=== PATIENT | male | born 1980 | race American Indian/Alaskan Native ===

== ENCOUNTER 2018-01-18 08:54 | Inpatient (IN) | payer BC ==
--- NOTE | 2018-01-18 10:01 | ED PDOC ---
HPI: Neurologic - General Chief Complaint (Provider): face weakness Source: patient Exam Limitations: no limitations - History of Present Illness Timing/Duration: other (12 h) Associated Symptoms: other (diminished sensation left arm) Additional Complaint(s): 37 yo ,m, afroamerican, PMhx/o HTN, cervical disk herniation, recentrly coming from [facility] yesterday after vacation, presents to ED referred from Urgent care with c/o facial droop noticed yesterday afternoon 6 pm. Patient reports he noticed left eye discomfort, rubbed his eye, looked in the mirrow and noticed facial droop upper and lower left side of face. Patient reports like a small pimple in his left ear, but not ear pain, ear discharge, tinnitus. He reports diminished sensation left forearm noticed today in the morning. He denies extremities weakness, numbness, facial numbness, headache, dizziness, confusion , slurred speech, fever, cough, SOB, n,v,d,abd pain, insect bite, tick bite, dysuria, rash. Pt was evaluated in Ed this morning and referred to Ed. Reports has been taking Atovaquone ( Malarone) for the last 7days <Suhas Vivar - Last Filed: 01/18/18 15:32> - History of Present Illness Timing/Duration: 24 hours <Chika Rinaldi - Last Filed: 01/19/18 08:03> - General Time Seen by Provider: 01/18/18 09:13 Chief Complaint (Nursing): Weakness/Neurological Deficit - History of Present Illness Allergies/Adverse Reactions: Allergies No Known Allergies Allergy (Verified 01/18/18 09:07) Home Medications: Ambulatory Orders Atovaquone/Proguanil [Malarone 250 mg-100 mg] 1 tab PO DAILY 01/18/18 NIHSS Stroke Scale - Date/Time Evaluation Performed Date Performed: 01/18/18 - How Severe is the Stroke Level of Consciousness: 0=Alert LOC to Questions: 0=Both comments correct LOC to commands: 0=Obeys both correctly Best Gaze: 0=Normal Visual: 0=No visual loss Facial: 3=Complete unilateral paralysis Motor Arm - Left: 0=No drift Motor Arm - Right: 0=No drift Motor Leg - Left: 0=No drift Motor Leg - Right: 0=No drift Limb Ataxia: 0=Absent Sensory: 1=Mild to moderate loss (medial side right forearm) Dysarthia: 0=Normal articulation Extinction & Inattention (Neglect): 0=Normal, no object <Suhas Vivar - Last Filed: 01/18/18 15:32> - Date/Time Evaluation Performed Time Performed: 09:20 When Was NIHSS Performed: Baseline - How Severe is the Stroke Level of Consciousness: 0=Alert LOC to Questions: 0=Both comments correct LOC to commands: 0=Obeys both correctly Best Gaze: 0=Normal Visual: 0=No visual loss Facial: 3=Complete unilateral paralysis Motor Arm - Left: 0=No drift Motor Arm - Right: 0=No drift Motor Leg - Left: 0=No drift Motor Leg - Right: 0=No drift Limb Ataxia: 0=Absent Sensory: 1=Mild to moderate loss Best Language: 0=No aphasia Dysarthia: 0=Normal articulation Extinction & Inattention (Neglect): 0=Normal, no object Score: 4 <Chika Rinaldi - Last Filed: 01/19/18 08:03> rTPA Inclusion/Exclusion - Inclusion Criteria for Altepase Patient is 18 years or Older: Yes The Clinical Diagnosis of Ischemic Stroke That is Causing a Potentially Disabling Neurological Deficit: No Time of Onset is Well Established to be Less Than 270 Minute Before Treatment Would Begin: No Risk/Benefit Discussed With Patient/Family Member Present: Yes - Exclusion Criteria for Altepase Uncontrolled Hypertension at Time of Treatment (Systolic BP above 185 or Diastolic BP above 110 mmHg): No Active Internal Bleeding: No Known Bleeding Diathesis Including but Not Limited to: Platelets Below 100,000/ mm,PTT Above 40 sec After Heparin Use, Current Use of Oral Anitcoagulant With INR Greater Than 1.7 or PT Greater Than 15 secs: No Evidence of an Intracranial Hemorrhage: No Suspicion of Subarachnoid Hemorrhage on Pretreatment Evaluation Even if CT Head Negative For Hemorrhage: No <Suhas Vivar - Last Filed: 01/18/18 15:32> - Refusal of Treatment Patient Refused Treatment: No - Inclusion Criteria for Altepase Patient is 18 years or Older: Yes The Clinical Diagnosis of Ischemic Stroke That is Causing a Potentially Disabling Neurological Deficit: No Time of Onset is Well Established to be Less Than 270 Minute Before Treatment Would Begin: No Risk/Benefit Discussed With Patient/Family Member Present: No <Chika Rinaldi Last Filed: 01/19/18 08:03> Supervising Attending Note - Supervising Attending Note The Documented history was done by the: Physician Living Supervisor, Attending Physician The documented physical exam was done by the: Physician Living Supervisor, Attending Physician The documented procedures were done by the: Physician Living Supervisor, Attending Physician - Attestation: I have personally seen and examined this patient.: Yes I have fully participated in the care of the patient.: Yes I have reviewed all pertinent clinical information, including history, physical exam and plan: Yes <NimcoFacundoyonatan A - Last Filed: 01/19/18 08:03> Past Medical History Vital Signs: Last Vital Signs Temp 97 F L 01/18/18 09:09 Pulse 79 01/18/18 09:09 Resp 18 01/18/18 09:09 BP 141/92 H 01/18/18 09:09 Pulse Ox 99 01/18/18 09:09 - Medical History PMH: HTN - Surgical History Surgical History: No Surg Hx - Family History Family History: States: Diabetes (Parents. Father CHF) - Social History Alcohol: Social Drugs: Denies <Suhas Vivar - Last Filed: 01/18/18 15:32> Reviewed: Historical Data, Nursing Documentation, Vital Signs Vital Signs: Last Vital Signs Temp 98.4 F 01/18/18 14:40 Pulse 77 01/18/18 14:40 Resp 16 01/18/18 14:40 BP 132/77 01/18/18 14:40 Pulse Ox 99 01/18/18 14:40 - Medical History PMH: HTN - Surgical History Surgical History: No Surg Hx - Family History Family History: States: Diabetes <NimcoFacundoyonatan Mike - Last Filed: 01/19/18 08:03> - Home Medications Home Medications: Ambulatory Orders Medication Instructions Recorded Atovaquone/Proguanil [Malarone 250 1 tab PO DAILY 01/18/18 mg-100 mg] - Allergies Allergies/Adverse Reactions: Allergies Allergy/AdvReac Type Severity Reaction Status Date / Time No Known Allergies Allergy Verified 01/18/18 09:07 Review of Systems Neurological: Positive for: Weakness (fracial), Other (diminished sensation left forearm) <Suhas Vivar - Last Filed: 01/18/18 15:32> ROS Statement: Except As Marked, All Systems Reviewed And Found Negative Constitutional: Negative for: Fever <NimcoFacundoyonatan Mckeon - Last Filed: 01/19/18 08:03> Physical Exam - Reviewed Vital Signs Reviewed: Yes - Physical Exam Appears: Positive for: Well, No Acute Distress Head Exam: Positive for: ATRAUMATIC, NORMOCEPHALIC Skin: Positive for: Normal Color Eye Exam: Positive for: EOMI, PERRL, Other (Incomplete closure of the left eyelid). Negative for: Nystagmus, Periorbital swelling ENT: Positive for: TM Is/Are (normal ), Other (left ear small papule, no vesicle seen.). Negative for: Nasal Congestion Neck: Positive for: Normal, Supple. Negative for: Decreased ROM Cardiovascular/Chest: Positive for: Regular Rate, Rhythm. Negative for: Murmur Respiratory: Positive for: Normal Breath Sounds. Negative for: Crackles, Rales , Rhonchi, Wheezing Gastrointestinal/Abdominal: Positive for: Soft. Negative for: Tenderness, Distended, Guarding, Rebound Back: Positive for: Normal Inspection. Negative for: L CVA Tenderness, R CVA Tenderness Extremity: Positive for: Normal ROM. Negative for: Pedal Edema, Calf Tenderness DTR - Knee (R): 2+ DTR - Knee (L): 2+ Neurologic/Psych: Positive for: Alert, Oriented, Motor/Sensory Deficits (left forearm medial side diminished tactil sensation ), Facial Droop (left side upper and lower face ) <Suhas Vivar - Last Filed: 01/18/18 15:32> - Reviewed Nursing Documentation Reviewed: Yes Vital Signs Reviewed: Yes <Chika Rinaldi - Last Filed: 01/19/18 08:03> - Laboratory Results Result Diagrams: 01/18/18 10:00 01/18/18 10:44 - ECG O2 Sat by Pulse Oximetry: 99 <Suhas Vivar - Last Filed: 01/18/18 15:32> - Laboratory Results Result Diagrams: 01/18/18 10:00 01/18/18 10:44 <Chika Rinaldi - Last Filed: 01/19/18 08:03> Medical Decision Making Medical Decision Makin:30 Impression Gray Palsy Possible MS Diferential CVA, Lyme disease, Intracraneal tumor ( Acoustic neuroma) Plan CBC, CMP,EKG, CT head w/o contrast 11:20 AM reevaluation Patient reports no new symptoms. CT Head c/o contast showed area of Focal lucency is seen in anterior right frontal subcortical white matter with remainder the exam normal appearing. f/u MRI is adised w/o contrast for additional characterization of this solitary finding. Patient explained new findings, verbalized understanding and agree to have MRI. will consult neurologist MRI:Abnormal white matter findings likely reflect multifocal demyelination and possibly multiple sclerosis though other etiologies are possible. Please see differential diagnosis described above. Follow-up MRI with contrast recommended Neurologist Consul Dr Iglesias Neurologist consulted patient in ED Recommends 1) Admit Patient 2) treat Gray Palsy : Acyclovir 800 mg TID x 20 days Prednisone 80 mg PO x 4 days, taper 60 mg x 4 days 3) MRI brain with contrast 4) LP : check M protein 5) Lyme titter, lupus work up Patient informed about possible diagnosis, Patient verbalized understanding <Suhas Vivar - Last Filed: 01/18/18 15:32> Disposition <Suhas Vivar - Last Filed: 01/18/18 15:32> - Patient ED Disposition Is Patient to be Admitted: Yes Discussed With : Sophie Wilkinson Doctor Will See Patient In The: ED Counseled Patient/Family Regarding: Studies Performed, Diagnosis - Disposition Disposition Time: 13:50 - Pt Status Changed To: Hospital Disposition Of: Inpatient - Admit Certification Admit to Inpatient:: After my assessment, the patient will require hospitalization for at least two midnights. This is because of the severity of symptoms shown, intensity of services needed, and/or the medical risk in this patient being treated as an outpatient. - POA Present On Arrival: None <Chika Rinaldi - Last Filed: 01/19/18 08:03> - Clinical Impression Clinical Impression: Gray's palsy, Multiple sclerosis - Disposition Condition: FAIR
[2018-01-18 10:17] LABS: BASO % 0.6 % (0.0-2.0); EOS # 0.1 K/uL (0.0-0.7); EOS % 2.9 % (0.0-4.0); HEMOGLOBIN 14.6 g/dL (12.0-18.0); LYMPH # 1.6 K/uL (1.0-4.3); LYMPH % 32.3 % (20.0-40.0); MEAN CELL VOLUME 86.5 fl (80.0-94.0); MEAN CORPUSCULAR HEMOGLOBIN 28.8 pg (27.0-31.0); MEAN CORPUSCULAR HGB CONC 33.3 g/dL (33.0-37.0); MONO # 0.5 K/uL (0.0-0.8); MONO % 10.9 % (0.0-10.0); NEUT # 2.6 K/uL (1.8-7.0); NEUT % 53.3 % (50.0-75.0); NRBC % 0.2 % (0.0-0.0); RBC 5.09 Mil/uL (4.40-5.90); RED CELL DISTRIBUTION WIDTH 14.9 % (11.5-14.5); WHITE BLOOD COUNT 4.9 K/uL (4.8-10.8)
--- NOTE | 2018-01-18 10:54 | CT ---
PROCEDURE: CT HEAD WITHOUT CONTRAST. HISTORY: Facial palsy,diminished sensation LUE COMPARISON: None available. TECHNIQUE: Axial computed tomography images were obtained through the head/brain without intravenous contrast. Radiation dose: Total exam DLP = 783.21 mGy-cm. This CT exam was performed using one or more of the following dose reduction techniques: Automated exposure control, adjustment of the mA and/or kV according to patient size, and/or use of iterative reconstruction technique. FINDINGS: HEMORRHAGE: No intracranial hemorrhage. BRAIN: Trace lucency is seen at subcortical white matter focally at the anterior right frontal lobe with remaining white matter unremarkable. Good where matter differentiation is appreciated and there is no significant mass effect. The corpus callosum appears unremarkable and her CT criteria as well as the entire posterior fossa contents. Follow-up MRI is advised for greater characterization of white matter abnormality right frontal lobe. VENTRICLES: Unremarkable. No hydrocephalus. CALVARIUM: Unremarkable. PARANASAL SINUSES: Unremarkable as visualized. No significant inflammatory changes. MASTOID AIR CELLS: Unremarkable as visualized. No inflammatory changes. OTHER FINDINGS: None. IMPRESSION: Focal lucency is seen in anterior right frontal subcortical white matter with remainder the exam normal appearing. Follow-up MRI is advised without contrast for additional characterization of this solitary finding. No definite cortical edema at this time, mass effect or intracranial hemorrhage.
[2018-01-18 11:42] LABS: ALB/GLOB RATIO 1.2 (1.0-2.1); ALBUMIN 4.1 g/dL (3.5-5.0); ALT/SGPT 27 U/L (21-72); AST/SGOT 22 U/L (17-59); BLOOD UREA NITROGEN 12 mg/dl (9-20); CALCIUM 9.4 mg/dL (8.4-10.2); GFR AFRICAN-AMERICAN > 60; GFR NON-AFRICAN AMERICAN > 60
--- NOTE | 2018-01-18 12:50 | MRI ---
PROCEDURE: MRI BRAIN WITHOUT CONTRAST HISTORY: left facial dropp abnormal CT head COMPARISON: Unenhanced head CT 01/18/2018 TECHNIQUE: Multiplanar, multisequence MR images of the brain were obtained without intravenous contrast enhancement. FINDINGS: HEMORRHAGE: None DWI: No evidence of an acute or early subacute infarction. BRAIN PARENCHYMA: There are multifocal white matter abnormalities manifest by hyperintense long TR signal at the bilateral periventricular, centrum semiovale and occasional bilateral frontal subcortical white matter. The corpus callosum is included in the pattern is most likely equal opportunity representative of demyelination including possible multiple sclerosis. Vasculitis, Lyme disease and other etiologies are less likely. Contrast MRI is advised to attempt to identify active plaques. Further clinical correlation is advised. There is no mass effect and the sulci and cisterns appear diffusely unremarkable. Exclusive of the corpus callosum, the midline brain anatomy is otherwise within normal limits. VENTRICLES: Unremarkable. No hydrocephalus. CRANIUM: Unremarkable. ORBITS: Grossly unremarkable. PARANASAL SINUSES/MASTOIDS: Mucosal inflammatory changes affect multiple ethmoid air cells in the right frontal sinus. VASCULAR SYSTEM: Skull base flow voids intact. OTHER FINDINGS: None. IMPRESSION: Abnormal white matter findings likely reflect multifocal demyelination and possibly multiple sclerosis though other etiologies are possible. Please see differential diagnosis described above. Follow-up MRI with contrast recommended.
--- NOTE | 2018-01-18 14:25 | CARD ---
APPROVED REPORT EKG Measurement Heart [id number] <Conclusion> Sinus rhythm with marked sinus arrhythmia Otherwise normal ECG
[2018-01-18] MEDS ORDERED: Gadodiamide 287 MG/ML VIAL (15ML) IV ONE (14:27)
--- NOTE | 2018-01-18 15:55 | MRI ---
PROCEDURE: MRI BRAIN WITH AND WITHOUT CONTRAST HISTORY: Gray Palsy COMPARISON: None. TECHNIQUE: Multiplanar, multisequence MR images of the brain were obtained with and without intravenous contrast enhancement. FINDINGS: A small developmental venous anomaly is appreciated the left cerebellum with remaining enhancement throughout the brain within normal limits. No active plaque enhancement is appreciated that would correspond to abnormal long TR white matter signal changes seen in earlier brain MRI without contrast also performed 01/18/2018. PARANASAL SINUSES/MASTOIDS: Clear VASCULAR SYSTEM: Skull base flow voids intact. OTHER FINDINGS: None . IMPRESSION: Development of venous anomaly left cerebellum. Remainder of the examination exhibits no additional abnormal enhancement.
--- NOTE | 2018-01-18 16:20 | CP.PCM.CON ---
History of Present Illness - History of Present Illness History of Present Illness: 37 yr old male who just returned from [facility] to [facility], where he went for two weeks, and experienced sudden left facial droop last night with no aphasia, no dysarthria, no weakness. After some deliberation, he decided to come to the Er today and receive evaluation. The symptoms are new, have never occured before, and he denies prior spasticity, diplopia, field cuts, or aphasia , headache or gait issues. MRI Brain was performed and showed multiple demyelinating lesions present in the corpus callosum and periventricular region. We will order an MRI Brain with carina to further evaluate these lesions but they are quite suspicious for MS/demyelinating process. There is no family hstory of MS, and no exposure to Lyme. ROS: no headache, no gi upset, no other issues. on exam: AAOx3. +left sided facial droop. Cannot wrinkle forehead, cannot completely close lft eye. Lt orbicularis sun is 3/5. tongue midline. +extinction of left arm. Rest of neurological examination is normal. +3 dtr ul and ll bl. Toes downgoing. No clonus. Gait is normal, no ataxia. Past Patient History - Past Social History Alcohol: Social Drugs: Denies - CARDIAC Hx Hypertension: Yes - PSYCHIATRIC Hx Substance Use: No - SURGICAL HISTORY Hx Surgeries: No Meds Allergies/Adverse Reactions: Allergies Allergy/AdvReac Type Severity Reaction Status Date / Time No Known Allergies Allergy Verified 01/18/18 09:07 - Medications Medications: Current Medications Acyclovir (Zovirax) 800 mg PO TID [facility] PRN Reason: Protocol Last Admin: 01/18/18 14:51 Dose: 800 mg Prednisone (Prednisone Tab) 60 mg PO DAILY [facility] Last Admin: 01/18/18 14:26 Dose: 60 mg Results - Vital Signs Recent Vital Signs: Last Vital Signs Temp 98.4 F 01/18/18 14:40 Pulse 77 01/18/18 14:40 Resp 16 01/18/18 14:40 BP 132/77 01/18/18 14:40 Pulse Ox 99 01/18/18 15:32 - Labs Result Diagrams: 01/18/18 10:00 01/18/18 10:44 Labs: Laboratory Results - last 24 hr 01/18/18 01/18/18 10:00 10:44 WBC 4.9 RBC 5.09 Hgb 14.6 Hct 44.0 MCV 86.5 MCH 28.8 MCHC 33.3 RDW 14.9 H Plt Count 220 MPV 8.0 Neut % (Auto) 53.3 Lymph % (Auto) 32.3 Sierra % (Auto) 10.9 H Eos % (Auto) 2.9 Baso % (Auto) 0.6 Neut # (Auto) 2.6 Lymph # (Auto) 1.6 Sierra # (Auto) 0.5 Eos # (Auto) 0.1 Baso # (Auto) 0.0 Sodium 145 Potassium 4.0 Chloride 102 Carbon Dioxide 27 Anion Gap 20 BUN 12 Creatinine 0.9 Est GFR ( Amer) > 60 Est GFR (Non-Af Amer) > 60 Random Glucose 84 Calcium 9.4 Total Bilirubin 0.6 AST 22 ALT 27 Alkaline Phosphatase 56 Total Protein 7.5 Albumin 4.1 Globulin 3.5 Albumin/Globulin Ratio 1.2 Assessment & Plan - Assessment and Plan (Free Text) Assessment: 37 yr old male with demyelinating process, most likey relapsing remitting MS. We will start IV solumedrol and admit to the hospital, and obtain MRI brain with carina. I have discussed the diagnosis with the patient and he is quite upset but seems to have good family support. We will follow up with him about treatment options after MRI Brain with carina, and possible LP.
[2018-01-18] MEDS: Pantoprazole 40 mg EC Tab PO SCH (18:33)
[2018-01-19] MEDS: Pantoprazole 40 mg EC Tab PO SCH (08:43)
[2018-01-19] MEDS ORDERED: methylPREDNISolone 1 GM in Sodium Chloride 0.9% 250 ML IV SCH (09:00)
--- NOTE | 2018-01-19 09:42 | CP.PCM.PN ---
Subjective - Date & Time of Evaluation Date of Evaluation: 01/19/18 Time of Evaluation: 09:37 - Subjective Subjective: Ms. Deleon was seen and examined at the bedside. He is alert, oriented in all spheres. He denies any headache, dizziness, lightheadedness, nausea, blurred vision, or vomiting. He remains with left facial area droop, but able to tolerate PO intake. He is able to move all extremities spontaneously. MRI of the brain without contrast showed abnormal white matter findings likely reflect multifocal demyelination and possibly multiple sclerosis though other etiologies are possible. MRI of the brain with contrast showed development of venous anomaly left cerebellum.There was no untoward events overnight. Objective - Vital Signs/Intake and Output Vital Signs (last 24 hours): Temp Pulse Resp BP Pulse Ox 97.8 F 67 20 137/88 97 01/19/18 07:52 01/19/18 07:52 01/19/18 07:52 01/19/18 07:52 01/19/18 07:52 - Medications Medications: Current Medications Acyclovir (Zovirax) 800 mg PO TID [facility] PRN Reason: Protocol Last Admin: 01/19/18 08:43 Dose: 800 mg Methylprednisolone 1 gm/ (Sodium Chloride) 250 mls @ 62.5 mls/hr IV DAILY [facility] Stop: 01/21/18 10:00 Pantoprazole Sodium (Protonix Ec Tab) 40 mg PO DAILY [facility] Last Admin: 01/19/18 08:43 Dose: 40 mg - Labs Labs: 01/18/18 10:00 01/18/18 10:44 - Constitutional Appears: No Acute Distress - Head Exam Head Exam: NORMAL INSPECTION - Neurological Exam Neurological Exam: Alert, Awake, Oriented x3 Neuro motor strength exam: Left Upper Extremity: 5, Right Upper Extremity: 5, Left Lower Extremity: 5, Right Lower Extremity: 5 Additional comments: He is able to answer all questions appropriately and follow simple commands. Sensation remains unequal in his face. Assessment and Plan (1) Gray's palsy Assessment & Plan: Case discussed with Dr. Iglesias, continue current medical treatment . Status: Acute (2) Multiple sclerosis Assessment & Plan: Case discussed with Dr. Iglesias, recommend solumedrol 1 gm IVPB daily for 3 days. Recommend to follow up with Dr. Seymour as an outpatient. If the patient wants to go home, recommend Prednisone 80 mg PO daily for 5 days, then prednisone 60 mg PO daily for 5 days, then prednisone 40 mg PO daily for 5 days, then prednisone 20 mg PO daily for 5 days, then prednisone 10 mg P) daily for 5 days , Then prednisone 5 mg PO daily for 5 days then d/c. Status: Acute
[2018-01-19 16:00] VITALS: RESP 18
[2018-01-19 16:01] VITALS: BP 152/85; PULSE 67; TEMP 98.4; O2SAT 97
--- NOTE | 2018-01-19 21:34 | CP.PCM.HP ---
History of Present Illness - History of Present Illness History of Present Illness: Cc: Facial droop 37 year old AA male with a pmhx of HTN not on medications presented to ED with c /o of left sided facial droop x 1 day. The patient states he returned from [facility] on Wednesday where he was on vacation. On Wednesday he had left eye discomfort and when he looked in the mirror he noticed left sided facial droop. States he has never had this before. Denies headache, dizziness, confusion, weakness, dysarthria, blurry vision, vision loss, facial numbness, extremities weakness, chest pain, sob, fever, chills, n/v. Denies any insect bites, has been taking anti-malarial Malarone for past 7 days. Present on Admission - Present on Admission Any Indicators Present on Admission: No Review of Systems - Review of Systems All systems: reviewed and no additional remarkable complaints except (as stated) - Constitutional Constitutional: As Per HPI - EENT Eyes: As Per HPI - Cardiovascular Cardiovascular: As Per HPI - Respiratory Respiratory: As Per HPI - Gastrointestinal Gastrointestinal: As Per HPI - Neurological Neurological: As Per HPI Past Patient History - Past Medical History & Family History Past Medical History?: Yes Pertinent Family History: HTN, DM and CHF on both sides of parents' families - Past Social History Smoking Status: Never Smoked - CARDIAC Hx Hypertension: Yes - MUSCULOSKELETAL/RHEUMATOLOGICAL Hx Falls: No - PSYCHIATRIC Hx Psychophysiologic Disorder: No Hx Substance Use: No - SURGICAL HISTORY Hx Surgeries: No - ANESTHESIA Hx Anesthesia: No Meds Home Medications: Home Medication List Medication Instructions Recorded Confirmed Type Acyclovir [Zovirax] 800 mg PO TID tab 01/19/18 Rx Pantoprazole [Protonix EC Tab] 40 mg PO DAILY ect 01/19/18 Rx Prednisone [Deltasone] 80 mg PO DAILY 5 Days tablet 01/19/18 Rx Allergies/Adverse Reactions: Allergies Allergy/AdvReac Type Severity Reaction Status Date / Time No Known Allergies Allergy Verified 01/18/18 09:07 Physical Exam - Constitutional Appears: Well, No Acute Distress - Head Exam Head Exam: ATRAUMATIC, NORMOCEPHALIC - Eye Exam Eye Exam: EOMI, Normal appearance (left sided eye droop), PERRL Pupil Exam: NORMAL ACCOMODATION - ENT Exam ENT Exam: Mucous Membranes Moist - Neck Exam Neck exam: Positive for: Full Rom, Normal Inspection - Respiratory Exam Respiratory Exam: Clear to Auscultation Bilateral, NORMAL BREATHING PATTERN - Cardiovascular Exam Cardiovascular Exam: REGULAR RHYTHM, +S1, +S2 - GI/Abdominal Exam GI & Abdominal Exam: Normal Bowel Sounds, Soft - Rectal Exam Rectal Exam: Deferred - Extremities Exam Extremities exam: Positive for: full ROM, pedal pulses present - Back Exam Back exam: FULL ROM, NORMAL INSPECTION - Neurological Exam Neurological exam: Alert, Oriented x3 Additional comments: Left sided facial droop - Psychiatric Exam Psychiatric exam: Normal Affect, Normal Mood - Skin Skin Exam: Normal Color, Warm Results - Vital Signs Recent Vital Signs: Last Vital Signs Temp 98.4 F 01/19/18 15:59 Pulse 67 01/19/18 15:59 Resp 18 01/19/18 15:59 BP 152/85 H 01/19/18 15:59 Pulse Ox 97 01/19/18 15:59 - Labs Result Diagrams: 01/18/18 10:00 01/18/18 10:44 - Imaging and Cardiology MRI brain Status: Image reviewed by me, Report reviewed by me Additional comment: PROCEDURE: MRI BRAIN WITHOUT CONTRAST HISTORY: left facial dropp abnormal CT head COMPARISON: Unenhanced head CT 01/18/2018 TECHNIQUE: Multiplanar, multisequence MR images of the brain were obtained without intravenous contrast enhancement. FINDINGS: HEMORRHAGE: None DWI: No evidence of an acute or early subacute infarction. BRAIN PARENCHYMA: There are multifocal white matter abnormalities manifest by hyperintense long TR signal at the bilateral periventricular, centrum semiovale and occasional bilateral frontal subcortical white matter. The corpus callosum is included in the pattern is most likely dental detail representative of demyelination including possible multiple sclerosis. Vasculitis, Lyme disease and other etiologies are less likely. Contrast MRI is advised to attempt to identify active plaques. Further clinical correlation is advised. There is no mass effect and the sulci and cisterns appear diffusely unremarkable. Exclusive of the corpus callosum, the midline brain anatomy is otherwise within normal limits. VENTRICLES: Unremarkable. No hydrocephalus. CRANIUM: Unremarkable. ORBITS: Grossly unremarkable. PARANASAL SINUSES/MASTOIDS: Mucosal inflammatory changes affect multiple ethmoid air cells in the right frontal sinus. VASCULAR SYSTEM: Skull base flow voids intact. OTHER FINDINGS: None. IMPRESSION: Abnormal white matter findings likely reflect multifocal demyelination and possibly multiple sclerosis though other etiologies are possible. Please see differential diagnosis described above. Follow-up MRI with contrast recommended. Assessment & Plan (1) Gray's palsy Status: Acute (2) Demyelinating disorder Assessment and Plan: Most Likely MS Status: Acute - Assessment and Plan (Free Text) Assessment: 37 year old AA male presents with left sided facial droop Plan: Imaging reports reviewed MRI brain - abnormal white matter findings likely reflect Multifocal Demyelination and possible multiple sclerosis Neurology consult IV Solumedrol Acyclovir Lyme Titer Will Need MRI C-Spine
--- NOTE | 2018-01-19 22:05 | CP.PCM.DIS ---
Provider - Provider Date of Admission: 01/18/18 13:50 Attending physician: Sophie Wilkinson MD Time Spent in preparation of Discharge (in minutes): 30 Diagnosis - Discharge Diagnosis (1) Gray's palsy Status: Acute (2) Multiple sclerosis Status: Acute Hospital Course - Lab Results Lab Results: Most Recent Lab Values WBC 4.9 K/uL (4.8-10.8) 01/18/18 10:00 RBC 5.09 Mil/uL (4.40-5.90) 01/18/18 10:00 Hgb 14.6 g/dL (12.0-18.0) 01/18/18 10:00 Hct 44.0 % (35.0-51.0) 01/18/18 10:00 MCV 86.5 fl (80.0-94.0) 01/18/18 10:00 MCH 28.8 pg (27.0-31.0) 01/18/18 10:00 MCHC 33.3 g/dL (33.0-37.0) 01/18/18 10:00 RDW 14.9 % (11.5-14.5) H 01/18/18 10:00 Plt Count 220 K/uL (130-400) 01/18/18 10:00 MPV 8.0 fl (7.2-11.7) 01/18/18 10:00 Neut % (Auto) 53.3 % (50.0-75.0) 01/18/18 10:00 Lymph % (Auto) 32.3 % (20.0-40.0) 01/18/18 10:00 [place] % (Auto) 10.9 % (0.0-10.0) H 01/18/18 10:00 Eos % (Auto) 2.9 % (0.0-4.0) 01/18/18 10:00 Baso % (Auto) 0.6 % (0.0-2.0) 01/18/18 10:00 Neut # (Auto) 2.6 K/uL (1.8-7.0) 01/18/18 10:00 Lymph # (Auto) 1.6 K/uL (1.0-4.3) 01/18/18 10:00 Sanborn # (Auto) 0.5 K/uL (0.0-0.8) 01/18/18 10:00 Eos # (Auto) 0.1 K/uL (0.0-0.7) 01/18/18 10:00 Baso # (Auto) 0.0 K/uL (0.0-0.2) 01/18/18 10:00 Sodium 145 mmol/l (132-148) 01/18/18 10:44 Potassium 4.0 MMOL/L (3.6-5.0) 01/18/18 10:44 Chloride 102 mmol/L (98-107) 01/18/18 10:44 Carbon Dioxide 27 mmol/L (22-30) 01/18/18 10:44 Anion Gap 20 (10-20) 01/18/18 10:44 BUN 12 mg/dl (9-20) 01/18/18 10:44 Creatinine 0.9 mg/dl (0.8-1.5) 01/18/18 10:44 Est GFR ( Amer) > 60 01/18/18 10:44 Est GFR (Non-Af Amer) > 60 01/18/18 10:44 Random Glucose 84 mg/dL (75-110) 01/18/18 10:44 Calcium 9.4 mg/dL (8.4-10.2) 01/18/18 10:44 Total Bilirubin 0.6 mg/dl (0.2-1.3) 01/18/18 10:44 AST 22 U/L (17-59) 01/18/18 10:44 ALT 27 U/L (21-72) 01/18/18 10:44 Alkaline Phosphatase 56 U/L (38-126) 01/18/18 10:44 Total Protein 7.5 G/DL (6.3-8.2) 01/18/18 10:44 Albumin 4.1 g/dL (3.5-5.0) 01/18/18 10:44 Globulin 3.5 gm/dL (2.2-3.9) 01/18/18 10:44 Albumin/Globulin Ratio 1.2 (1.0-2.1) 01/18/18 10:44 - Hospital Course Hospital Course: 37 year old AA male who presented with left sided facial droop. The patient was found to have MS and was treated with IV steroids and acyclovir. The patient was seen by neurology and recommendations for Prednisone tapering dose as outpt were given. The patient was discharged home with prescriptions and instructions to f/u with neurologist, Dr. Garber. I have discussed with Neurologist Dr. Iglesias about the recommendation from that C-Spine MRI and at least one more dose of Solumedrol 1000mg IV. Patient insisted on being discharged and the Neurologist, recommended specific Tapering dose of Prednisone and Acyclovir. Unable to reach . Patient was advised to Follow up a Neurologist ROSA, and also was informed about important adverse effects from the medications. Advised to Quit Etoh use. Discharge Exam - Head Exam Head Exam: ATRAUMATIC, NORMOCEPHALIC - Eye Exam Eye Exam: Normal appearance (left sided eye droop) - ENT Exam ENT Exam: Mucous Membranes Moist - Respiratory Exam Respiratory Exam: Clear to PA & Lateral, NORMAL BREATHING PATTERN - Cardiovascular Exam Cardiovascular Exam: REGULAR RHYTHM, +S1, +S2 - GI/Abdominal Exam GI & Abdominal Exam: Normal Bowel Sounds, Soft - Extremities Exam Extremities exam: full ROM, normal capillary refill, normal inspection - Neurological Exam Neurological exam: Alert, Oriented x3 Additional comments: Left VII CN Palsy. - Psychiatric Exam Psychiatric exam: Normal Affect, Normal Mood - Skin Skin Exam: Normal Color, Warm Discharge Plan - Discharge Medications Prescriptions: Prednisone [Deltasone] 80 mg PO DAILY 5 Days tablet - Follow Up Plan Condition: STABLE Disposition: HOME/ ROUTINE Instructions: Acyclovir (Systemic), Gray's Palsy (DC), Multiple Sclerosis, Adult (DC), Pantoprazole, Prednisone Additional Instructions: follow up with your primary MD and neurologist Referrals: Jose Carlos Garber MD [Staff Provider] - Jennifer Iglesias MD [Medical Doctor] - Sophie Wilkinson MD [Staff Provider] -
== END 2018-01-19 16:35 | disposition home or self-care (01) | DRG 60 ==
LOC: H.ER 08:54 → H.ERHOLD 13:50 → H.MEDSURG1 16:25
PROVIDERS: ADMIT Internal Medicine; ATTEND Internal Medicine
DX: G35 Multiple sclerosis (principal); M50.20 Other cervical disc displacement, unspecified cervical region; G51.0 Bell's palsy; I10 Essential (primary) hypertension